=== PATIENT | male | born 1990 | race Hispanic/Latino ===

== ENCOUNTER 2019-01-09 23:06 | Emergency (ER) | payer BC ==
[~2019-01-09] VITALS: Ht 177.8 cm; Wt 140.6 kg
[2019-01-09 23:11] VITALS: BP 132/92
--- NOTE | 2019-01-09 23:34 | ER.PDOC ---
General Chief Complaint: Chest Pain-Cardiac Nature Stated Complaint: NAUSEA Time seen by MD: 23:20 Source: patient Exam Limitations: no limitations History of Present Illness Initial Comments patient has palpitations and tingling in hands and chest pain across chest approximately 3 hours before arrival. Timing/Duration: 1-3 hours Severity/Quality: moderate Radiation: no radiation Activities at Onset: none Nitro Today/Relief: 0.4 mg x 1 Aspirin Today: 81 mg x 3 Allergies: Coded Allergies: No Known Allergies (Unverified , 12/07/14) Home Meds No Active Prescriptions or Reported Meds Past Medical History Medical History: high cholesterol, hypertension Surgical History: no surgical history Social History Smoking: non-smoker Alcohol Use: none Drug Use: none Constitutional: denies fever EENTM: denies nose pain Respiratory: denies cough Cardiovascular: chest pain; denies lightheadedness; palpitations; denies syncope Gastrointestinal: denies abdominal pain Genitourinary: denies pain Psychiatric/Neurological: denies headache Hematologic/Lymphatic: denies blood clots Physical Exam General Appearance: No Apparent Distress, WD/WN HEENT: PERRL/EOMI, Normal ENT Inspection Neck: Non-Tender Respiratory: chest non-tender, lungs clear, normal breath sounds Cardiovascular: Normal Peripheral Pulses, Regular Rate, Rhythm Gastrointestinal: Non Tender Extremities: Normal Range of Motion, Non-Tender, Normal Inspection, No Pedal Edema 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, No Motor/Sensory Deficits, Alert, Normal Mood/Affect, Oriented x 3 Skin: Normal Color Results/Orders Results/Orders Vital Signs Date Time Temp Pulse Resp B/P (MAP) Pulse Ox O2 Delivery O2 Flow Rate FiO2 01/09/19 23:11 97.9 97 26 01/09/19 23:11 97.9 97 26 132/92 (105) Room Air 01/09/19 23:07 94 26 97 Room Air Departure Time of Disposition: 02:01 Disposition: 01 HOME, SELF-CARE Impression: Primary Impression: Chest pain Additional Impressions: Hypoglycemia Palpitations Condition: Stable Patient Instructions: Chest Pain (Nonspecific), Hypoglycemia (Low Blood Sugar), Palpitations Referrals: SON MEZA MD (PCP) PRIMARY CARE PROVIDER Additional Instructions: return for any worsening symptoms Scripts No Active Prescriptions or Reported Meds Duration or Time Spent with Pa: 15 Problem Qualifiers ESTEVAN MERCADO MD Jan 09, 2019 23:34
--- NOTE | 2019-01-09 23:36 | PCM.EKG ---
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 Reading MD: Phil Santoro Measurements Intervals [place] Rate: 94 P: 45 PA: 158 QRS: 42 QRSD: 84 T: 35 QT: 360 QTc: 450 Interpretive Statements Normal sinus rhythm Normal ECG Compared to ECG 07/26/2018 21:05:32 No significant changes Electronically Signed On 01-10-2019 1:28:14 CDT by Phil Santoro Please click the below link to view image of tracing.
--- NOTE | 2019-01-09 23:45 | DIREP ---
PROCEDURE:CHEST 1 VIEW COMPARISON:[facility], CR, XRAY CHEST SINGLE VW, 07/26/2018, 09:10 PM. INDICATIONS:chest pain FINDINGS: LUNGS/PLEURA:No significant pulmonary parenchymal abnormalities. No effusions. VASCULATURE:Normal. Unremarkable pulmonary vasculature. CARDIAC:Normal. No cardiac silhouette abnormality or cardiomegaly. MEDIASTINUM:Normal. No visible mass or adenopathy. BONES:Normal. No fracture or visible bony lesion. OTHER:Negative. CONCLUSION:Normal examination. Dictated by: Weston Bardales Jr. on 01/09/2019 at 11:43 PM
[2019-01-09 23:46] LABS: BASOPHIL % 0.4 % (0.0-0.2); EOSINOPHIL # 0.1 10^3/uL (0.0-0.2); EOSINOPHIL % 0.8 % (0.0-5.0); HEMOGLOBIN 15.8 g/dL (13.9-16.3); LYMPHOCYTES # 2.1 10^3/uL (1.0-4.8); LYMPHOCYTES % 26.4 % (24.0-44.0); MEAN CELL HGB 29.5 pg (26-34); MEAN CELL HGB CONCENTRATION 34.1 g/dL (33-37); MEAN CORP VOLUME 86.5 fL (78-100); MEAN PLATELET VOLUME 9.7 fL (7.8-11.0); MONOCYTES # 0.7 10^3/uL (0.3-0.8); MONOCYTES % 9.5 % (5.0-12.0); NEUTROPHIL # 4.9 10^3/uL (1.8-7.7); NEUTROPHILS % 62.6 % (41.0-85.0); RED CELL DISTRIBUTION WIDTH 12.7 % (11.5-14.5); WHITE BLOOD CELL 7.8 10^3/uL (4.5-11.0)
[2019-01-10 00:13] LABS: ALANINE AMINOTRANSFERASE(ML) 38 U/L (12-78); ALKALINE PHOSPHATASE 77 U/L (50-136); ASPARTATE AMINO TRANSFERASE 22 U/L (0-35); CALCIUM 9.4 mg/dL (8.4-10.5); CARBON DIOXIDE 27.9 mmol/L (20.0-32); GLUCOSE 62 mg/dL (70-110)
[2019-01-10 02:04] VITALS: BP 130/84
== END 2019-01-10 02:12 | disposition home or self-care (01) ==
LOC: EDBD 23:06 → ER 23:06
DX: E16.2 Hypoglycemia, unspecified (principal); E78.00 Pure hypercholesterolemia, unspecified; I10 Essential (primary) hypertension
CPT/HCPCS: 36415; 71045; 80053; 82550; 83880; 84484; 85025; 85379; 85610; 85730; 93005; 99285

== ENCOUNTER → 2019-01-20 | Outpatient (CLI) | payer BC ==
[2019-01-20 16:37] LABS: RED CELL DISTRIBUTION WIDTH 13.2 % (11.5-14.5)
--- NOTE | 2019-01-20 17:11 | PCM.EKG ---
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
[2019-01-20 17:36] LABS: ALANINE AMINOTRANSFERASE(ML) 56 U/L (12-78); ALKALINE PHOSPHATASE 98 U/L (50-136); ASPARTATE AMINO TRANSFERASE 26 U/L (0-35); CALCIUM 9.8 mg/dL (8.4-10.5); CARBON DIOXIDE 29.6 mmol/L (20.0-32); GLUCOSE 102 mg/dL (70-110)
--- NOTE | 2019-01-20 17:54 | DIREP ---
PROCEDURE:XR SPINE CERVICAL 2 OR 3 VIEWS COMPARISON:None. INDICATIONS:M54.12 RADICULOPATHY CERVICAL REGION TECHNIQUE:AP, lateral, swimmer's, and dens views of the cervical spine are provided. FINDINGS: ALIGNMENT:Normal. VERTEBRAE:Normal. DISK SPACES:Normal. CERVICAL RIBS:None. OTHER:Normal. CONCLUSION:Normal examination. Dictated by: Stephane Jimenez M.D. on 01/20/2019 at 05:52 PM
== END | disposition home or self-care (01) ==
LOC: LAB 16:06
PROVIDERS: ATTEND Nurse Practitioner Family
DX: M54.12 Radiculopathy, cervical region (principal); I10 Essential (primary) hypertension; R53.83 Other fatigue
CPT/HCPCS: 36415; 72040; 80053; 82553; 84436; 84443; 84484; 85027; 85651; 86140; 93005

== ENCOUNTER 2019-03-31 21:20 | Emergency (ER) | payer BC ==
--- NOTE | 2019-03-31 21:49 | ER.PDOC ---
General Chief Complaint: Requesting Medical Care Stated Complaint: SORE THROAT Time seen by MD: 21:45 Source: patient Exam Limitations: no limitations History of Present Illness Initial Comments Patient c/o sore throat today. Daughter tested positive for strep this week. Timing/Duration: gradual Associated Symptoms: mod sore throat Severity: moderate Allergies: Coded Allergies: No Known Allergies (Unverified , 12/07/14) Home Meds No Active Prescriptions or Reported Meds Past Medical History Medical History: high cholesterol, hypertension Surgical History: no surgical history Social History Drug Use: none Constitutional: no symptoms reported Eyes: no symptoms reported Ears: no symptoms reported Nose: no symptoms reported Mouth: no symptoms reported Throat: painful swallowing Respiratory: no symptoms reported Cardiovascular: no symptoms reported Gastrointestinal: no symptoms reported Musculoskeletal: no symptoms reported Skin: no symptoms reported Physical Exam General Appearance: alert, no distress Head/Neck: head nml inspection, neck nml inspection, trachea midline, no lymphadenopathy Eyes: eyes nml inspection Mouth: lips, gums nml, no drooling, no thrush, membranes nml Throat: pharyngeal erythema Ears/Nose: nml inspection Respiratory: no resp. distress, lungs clear CVS: reg. rate & rhythm, heart sounds nml Abdomen: non-tender Extremities: non-tender Skin Exam: Normal Color NEURO/PSYCH: oriented X3 Results/Orders Results/Orders Orders - BOGDAN ROSS DO Influenza A&B (03/31/19 21:30) Strep Screen (03/31/19 21:30) Laboratory Tests Test 03/31/19 00:00 Influenza Type A Antigen NEGATIVE (NEG) Influenza B Immunofluorescence NEGATIVE (NEG) Group A Streptococcus Screen NEGATIVE (NEGATIVE) Progress Progress flu and strep are negative but 2 family members are + strep; patient would like to be treated anyway Departure Time of Disposition: 22:32 Disposition: 01 HOME, SELF-CARE Impression: Primary Impression: Pharyngitis Qualified Codes: J02.9 - Acute pharyngitis, unspecified Condition: Stable Patient Instructions: Viral and Bacterial Pharyngitis Referrals: SON MEZA MD (PCP) PRIMARY CARE PROVIDER Additional Instructions: Return to ER if you experience any difficulty breathing or swallowing. Scripts No Active Prescriptions or Reported Meds Duration or Time Spent with Pa: 1 hour BOGDAN ROSS DO Mar 31, 2019 21:49
[2019-03-31] MEDS ORDERED: BICILLIN L-A IM ONE (22:30)
[2019-03-31] MEDS ORDERED: BICILLIN L-A IM STA (22:31)
== END 2019-03-31 22:45 | disposition home or self-care (01) ==
LOC: ER 21:20
DX: J02.9 Acute pharyngitis, unspecified (principal); E78.00 Pure hypercholesterolemia, unspecified; I10 Essential (primary) hypertension
CPT/HCPCS: 87070; 87804 ×2; 87880; 96372; 99284; J0561

== ENCOUNTER 2019-06-17 16:18 | Emergency (ER) | payer BC ==
[~2019-06-17] VITALS: Ht 177.8 cm; Wt 133.8 kg
[2019-06-17 16:55] VITALS: BP 122/84
[2019-06-17 17:24] VITALS: BP 138/80
--- NOTE | 2019-06-17 17:39 | ER.PDOC ---
General Chief Complaint: Sore Throat Stated Complaint: FEVER,SORE THROAT,HEADACE Time seen by MD: 17:32 Source: patient Exam Limitations: no limitations History of Present Illness Initial Comments patient c/o fever and ST onset last night Timing/Duration: gradual Associated Symptoms: fever/chills, mod sore throat Severity: moderate Prior symptoms/Treatment: Similar symptoms previous (seen by me around [place] and dx'd + STrep) Allergies: Coded Allergies: No Known Allergies (Unverified , 12/07/14) Home Meds No Active Prescriptions or Reported Meds Past Medical History Medical History: hypertension, other Surgical History: no surgical history Social History Alcohol Use: none Drug Use: none Constitutional: fever Eyes: no symptoms reported Ears: no symptoms reported Nose: no symptoms reported Mouth: no symptoms reported Throat: pain, painful swallowing Respiratory: no symptoms reported Cardiovascular: no symptoms reported Gastrointestinal: no symptoms reported Skin: no symptoms reported Physical Exam General Appearance: alert Head/Neck: head nml inspection, neck nml inspection, trachea midline, cervical lymphadenopathy Eyes: eyes nml inspection Mouth: lips, gums nml Throat: voice nml, no airway problems Respiratory: no resp. distress, lungs clear CVS: reg. rate & rhythm, heart sounds nml Abdomen: non-tender Extremities: non-tender Skin Exam: Normal Color, Warm/Dry NEURO/PSYCH: oriented X3, mood/effect nml Results/Orders Results/Orders Vital Signs Date Time Temp Pulse Resp B/P (MAP) Pulse Ox O2 Delivery O2 Flow Rate FiO2 06/17/19 17:24 100.3 124 20 06/17/19 17:24 100.3 124 20 138/80 (99) 98 Room Air 06/17/19 16:55 100.3 118 20 98 Laboratory Tests Test 06/17/19 17:00 Influenza Type A Antigen NEGATIVE (NEG) Influenza B Immunofluorescence NEGATIVE (NEG) Group A Streptococcus Screen NEGATIVE (NEGATIVE) Progress Progress studies are negative but clinically patient has strep Departure Time of Disposition: 17:54 Disposition: 01 HOME, SELF-CARE Impression: Primary Impression: Strep pharyngitis Condition: Stable Patient Instructions: Strep Throat Referrals: SON MEZA MD (PCP) PRIMARY CARE PROVIDER Additional Instructions: Off work today and tomorrow. You may return to work when you have been fever- free for 24 hours. Alternate Tylenol and Motrin every four hours as needed for fever. TAke amoxicillin until all gone. Return to ER if you have any difficulty breathing or swallowing. Scripts No Active Prescriptions or Reported Meds Duration or Time Spent with Pa: 15 min BOGDAN ROSS DO Jun 17, 2019 17:39
[2019-06-17] MEDS ORDERED: DECADRON ONE (18:06)
[2019-06-17] MEDS ORDERED: DUO 0.5-3(2.5) MG/3 ML IH ONE ×2 (18:06→18:15)
[2019-06-17 18:11] VITALS: BP 146/73
== END 2019-06-17 18:06 | disposition home or self-care (01) ==
LOC: ER 16:18
DX: J02.0 Streptococcal pharyngitis (principal); I10 Essential (primary) hypertension
CPT/HCPCS: 87070; 87804; 87880; 99283; J1100; J7620

== ENCOUNTER → 2019-07-28 | Outpatient (CLI) | payer BC ==
[2019-07-28 14:55] LABS: CARBON DIOXIDE 28.3 mmol/L (20.0-32)
--- NOTE | 2019-07-28 15:06 | DIREP ---
PROCEDURE:XRAY SPINE LUMBAR 2-3 VWS COMPARISON:None. INDICATIONS:LOW BACK PAIN TECHNIQUE:AP, lateral, and coned down lateral views of the lumbar spine are provided. FINDINGS: ALIGNMENT:Normal. VERTEBRAE:Normal. DISK SPACES:Normal, except for narrowing at L3-4 with endplate osteophyte formation. SPONDYLOLISTHESIS:None. SACROILIAC JOINTS:Normal. OTHER:Normal. CONCLUSION:Degenerative changes at L3-4. No fracture or subluxation. Dictated by: Nikos Black M.D. on 07/28/2019 at 03:02 PM
== END | disposition home or self-care (01) ==
LOC: LAB 14:25
PROVIDERS: ATTEND Nurse Practitioner Family
DX: M47.816 Spondylosis without myelopathy or radiculopathy, lumbar region (principal); R07.9 Chest pain, unspecified; M25.78 Osteophyte, vertebrae; M54.5 Low back pain
CPT/HCPCS: 36415; 72100; 80048

== ENCOUNTER 2020-04-21 11:21 | Emergency (ER) | payer BC, OTHER ==
[~2020-04-21] VITALS: Ht 177.8 cm; Wt 140.6 kg
[2020-04-21 11:39] VITALS: BP 181/125
[2020-04-21 11:47] VITALS: BP 181/125
--- NOTE | 2020-04-21 12:00 | ER.PDOC ---
General Chief Complaint: General Complaint Stated Complaint: HIGH BP TRAVEL OUT OF US: No Time seen by MD: 11:58 Source: patient Exam Limitations: no limitations History of Present Illness Initial Comments Elevated blood pressure at his Doctor's office this morning. Patient told me that his blood pressure runs normal at home. No chest pain or SOB. Timing/Duration: 4-6 hours Severity: moderate Associated Symptoms: denies symptoms Allergies: Coded Allergies: No Known Allergies (Unverified , 12/07/14) Home Meds No Active Prescriptions or Reported Meds Past Medical History Medical History: hypertension, other Surgical History: no surgical history Family History Significant Family History: no pertinent family hx Social History Alcohol Use: none Drug Use: none Review of Systems Constitutional: no symptoms reported EENTM: no symptoms reported Respiratory: no symptoms reported Cardiovascular: see HPI Gastrointestinal: no symptoms reported Genitourinary: no symptoms reported All Other Systems: Reviewed and Negative Physical Exam General Appearance: No Apparent Distress, WD/WN, Anxious Neck: Non-Tender, Full Range of Motion, Supple, Normal Inspection Respiratory: chest non-tender, lungs clear, normal breath sounds, no respirato ry distress, no accessory muscle use CVS: reg rate & rhythm, no murmur, no gallop, pulses nml, nml capillary refill Gastrointestinal: Normal Bowel Sounds, No Organomegaly, No Pulsatile Mass, Non Tender Back: Normal Inspection, No CVA Tenderness, No Vertebral Tenderness Extremities: Normal Range of Motion, Non-Tender, Normal Inspection, No Pedal Edema 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, No Motor/Sensory Deficits, Alert, Normal Mood/Affect, Oriented x 3 Skin: Normal Color Results/Orders Results/Orders Orders - CHASTITY SEWELL MD Cbc With Auto Diff (04/21/20 11:56) Comprehensive Metabolic Panel (04/21/20 11:56) Troponin I (04/21/20 11:56) Xr Chest 1v (04/21/20 11:56) Ekg-Routine (04/21/20 11:56) Vital Signs Date Time Temp Pulse Resp B/P (MAP) Pulse Ox O2 Delivery O2 Flow Rate FiO2 04/21/20 12:27 78 18 165/105 (125) 98 Room Air 04/21/20 11:47 98.5 89 20 181/125 (143) 98 Room Air 04/21/20 11:47 98.5 89 20 04/21/20 11:39 98.5 89 20 98 Laboratory Tests Test 04/21/20 12:10 White Blood Count 7.2 10^3/uL (4.5-11.0) Red Blood Count 5.62 10^6/uL (4.50-5.90) Hemoglobin 16.1 g/dL (13.9-16.3) Hematocrit 48.5 % (37.0-53.0) Mean Corpuscular Volume 86.3 fL (78-100) Mean Corpuscular Hemoglobin 28.6 pg (26-34) Mean Corpuscular Hemoglobin Concent 33.2 g/dL (33-36.5) Red Cell Distribution Width 12.4 % (11.5-14.5) Platelet Count 271 10^3/uL (150-400) Mean Platelet Volume 9.3 fL (7.8-11.0) Neutrophils (%) (Auto) 61.0 % (41.0-85.0) Lymphocytes (%) (Auto) 28.6 % (24.0-44.0) Monocytes (%) (Auto) 8.0 % (5.0-12.0) Neutrophils # (Auto) 4.4 10^3/uL (1.8-7.7) Lymphocytes # (Auto) 2.06 10^3/uL1 (1.0-4.8) Monocytes # (Auto) 0.6 10^3/uL (0.3-0.8) Absolute Immature Granulocyte (auto 0.04 10^3 u/L (0-2) Absolute Eosinophils (auto) 0.1 10^3/uL (0.0-0.2) Immature Granulocytes % 0.60 % (0.00-0.50) H Eosinophils % 1.2 % (0.0-5.0) Basophils % 0.6 % (0.0-0.2) H Basophils # 0.0 10^3/uL (0.0-0.1) Sodium Level 141 mmol/L (132-145) Potassium Level 3.8 mmol/L (3.6-5.2) Chloride Level 105.0 mmol/L (96-109) Carbon Dioxide Level 28.6 mmol/L (20.0-32) Anion Gap 11.2 Blood Urea Nitrogen 13 mg/dL (7-18) Creatinine 0.88 mg/dL (0.59-1.40) Estimated GFR () 121.4 (>/=60) Est GFR (CKD-EPI)(Non-Afr Armenian) 100.4 (>/=60) BUN/Creatinine Ratio 14.0 Glucose Level 112 mg/dL (70-110) H Calcium Level 9.0 mg/dL (8.4-10.5) Total Bilirubin 0.3 mg/dL (0.2-1.0) Aspartate Amino Transferase (AST) 19 U/L (0-35) Alanine Aminotransferase (ALT) 35 U/L (12-78) Alkaline Phosphatase 79 U/L (50-136) Troponin I < 0.02 ng/mL (0.00-0.05) Total Protein 7.4 g/dL (6.4-8.2) Albumin 3.5 g/dL (3.4-5.0) Globulin 3.9 Albumin/Globulin Ratio 0.897 Progress Progress Blood pressure improved to 146/98 EKG/XRAY/CT/US EKG: NSR, no ST T wave changes EKG Comments: rate 80, normal axis ER DEPART Departure Time of Disposition: 12:54 Disposition: 01 HOME, SELF-CARE Impression: Primary Impression: Uncontrolled hypertension Condition: Improved Referrals: SON MEZA MD (PCP) PRIMARY CARE PROVIDER Additional Instructions: Keep a blood pressure diary F/U with your PCP next week Return to ED if any concerns Scripts No Active Prescriptions or Reported Meds Duration or Time Spent with Pa: 45 min CHASTITY SEWELL MD Apr 21, 2020 12:00
[2020-04-21 12:22] LABS: BASOPHIL % 0.6 % (0.0-0.2); EOSINOPHIL # 0.1 10^3/uL (0.0-0.2); EOSINOPHIL % 1.2 % (0.0-5.0); LYMPHOCYTES # 2.06 10^3/uL1 (1.0-4.8); LYMPHOCYTES % 28.6 % (24.0-44.0); MEAN CORP HGB 28.6 pg (26-34); MONOCYTES # 0.6 10^3/uL (0.3-0.8); NEUTROPHIL # 4.4 10^3/uL (1.8-7.7); PLATELET COUNT 271 10^3/uL (150-400); RED CELL DISTRIBUTION WIDTH 12.4 % (11.5-14.5)
[2020-04-21 12:27] VITALS: BP 165/105
--- NOTE | 2020-04-21 12:27 | PCM.EKG ---
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
--- NOTE | 2020-04-21 12:36 | DIREP ---
PROCEDURE:CHEST 1 VIEW COMPARISON:[facility], CR, XRAY CHEST SINGLE VW, 01/09/2019, 11:32 PM. INDICATIONS:Hypertension FINDINGS: LUNGS/PLEURA:No significant pulmonary parenchymal abnormalities. No effusions. VASCULATURE:Normal. Unremarkable pulmonary vasculature. CARDIAC:Normal. No cardiac silhouette abnormality or cardiomegaly. MEDIASTINUM:Normal. No visible mass or adenopathy. BONES:Normal. No fracture or visible bony lesion. OTHER:Negative. CONCLUSION:No acute cardiopulmonary findings. Dictated by: Nilo Hicks M.D. on 04/21/2020 at 12:34 PM
[2020-04-21 12:46] LABS: ALANINE AMINOTRANSFERASE(ML) 35 U/L (12-78); ALKALINE PHOSPHATASE 79 U/L (50-136); ASPARTATE AMINO TRANSFERASE 19 U/L (0-35); CARBON DIOXIDE 28.6 mmol/L (20.0-32); GLUCOSE 112 mg/dL (70-110)
[2020-04-21 13:02] VITALS: BP 149/107
== END 2020-04-21 13:00 | disposition home or self-care (01) ==
LOC: ER 11:21
DX: I10 Essential (primary) hypertension (principal)
CPT/HCPCS: 36415; 71045; 80053; 84484; 85025; 93005; 99285

== ENCOUNTER 2020-05-07 20:11 | Emergency (ER) | payer OTHER ==
[~2020-05-07] VITALS: Ht 177.8 cm; Wt 140.6 kg
[2020-05-07 20:27] VITALS: BP 149/92
[2020-05-07 20:30] VITALS: BP 129/81
--- NOTE | 2020-05-07 20:57 | ER.PDOC ---
General Chief Complaint: General Complaint Stated Complaint: HBP TRAVEL OUT OF US: No Time seen by MD: 20:30 Source: patient, family Exam Limitations: no limitations History of Present Illness Initial Comments 30-year-old male comes in with a complaint of hypertension. States his blood pressure has been high over the last 2 weeks. States he gets up in the morning and spine and by evening it up in the 160s to 180 range. More recently it was getting up into the 190 range so they saw their PCP and was started onBlood pressure medicine. Tonight his blood pressure was elevated again to 186 at home on the systolic number. However by arrival here it was back down to 149Systolic. When I went in and saw the patient I was visiting with him the next cycle of the blood pressure machine showed is 128/81. Patient also gives a history that sounds very much like reflux. He gives a history of having this sensation of burning in his chest that radiates up into the back of his throat and sometimes a little bit of radiation over into the left side and left shoulder. Patient states that it is not associated with exertion. 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 He states however that he climbs stairs on a frequent basis at all throughout the day and he never gets any chest pain or shortness of breath doing that.Is his family history is significant for diabetes and hypertension but no family history of heart disease. His PCP has sent him down to [place] to see Dr. Lopez and his appointment is next Friday05/15/20. Timing/Duration: other (2 weeks) Severity: moderate Associated Symptoms: chest pain, other (his chest pains sound like reflux. no cp with exertion.) Allergies: Coded Allergies: No Known Allergies (Unverified , 12/07/14) Home Meds No Active Prescriptions or Reported Meds Past Medical History Medical History: hypertension Surgical History: no surgical history Family History Significant Family History: diabetes, hypertension Social History Smoking: non-smoker Alcohol Use: none Drug Use: none Review of Systems Cardiovascular: see HPI Gastrointestinal: see HPI All Other Systems: Reviewed and Negative Physical Exam General Appearance: No Apparent Distress, Other (morbidly obese) EENT: eyes nml inspection Neck: Non-Tender, Full Range of Motion Respiratory: chest non-tender, lungs clear, normal breath sounds, no respiratory distress CVS: reg rate & rhythm, no murmur, no gallop, pulses nml Gastrointestinal: Normal Bowel Sounds, No Organomegaly, No Pulsatile Mass, Non Tender Extremities: Normal Range of Motion 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, Alert, Normal Mood/Affect, Oriented x 3 Skin: Normal Color, Warm/Dry Lymphatic: No Adenopathy Results/Orders Results/Orders Vital Signs Date Time Temp Pulse Resp B/P (MAP) Pulse Ox O2 Delivery O2 Flow Rate FiO2 05/07/20 20: 99.4 103 18 05/07/20 20:27 99.4 103 18 149/92 (111) 95 Room Air 05/07/20 20: 99.4 103 18 95 ER DEPART Departure Time of Disposition: 20:56 Disposition: 01 HOME, SELF-CARE Impression: Primary Impression: Hypertension Additional Impression: GERD (gastroesophageal reflux disease) Condition: Stable Referrals: SON MEZA MD (PCP) PRIMARY CARE PROVIDER Scripts No Active Prescriptions or Reported Meds Comments Recommend keeping a 7-day log of his blood pressures taken both morning and night. We also sent him home with a large blood pressure cuff. Also recommended to use [id number] Nexium 1 pill a day for the next 2 weeks and see what that does for his reflux symptoms.And follow-up with his PCP as needed. Keep his appointment in [place] on [address] Lopez Duration or Time Spent with Pa: 15m Problem Qualifiers SE LYONS MD May 07, 2020 20:57
[2020-05-07 21:00] VITALS: BP 121/78
== END 2020-05-07 21:09 | disposition home or self-care (01) ==
LOC: ER 20:11
DX: I10 Essential (primary) hypertension (principal); K21.9 Gastro-esophageal reflux disease without esophagitis; Z82.49 Family history of ischemic heart disease and other diseases of the circulatory system; Z83.3 Family history of diabetes mellitus
CPT/HCPCS: 99282